=== PATIENT | female | born 1950 ===

== ENCOUNTER 2020-09-20 09:00 | Inpatient (IN) | payer OTHER ==
[~2020-09-20] VITALS: Ht 149.9 cm; Wt 77.6 kg
[2020-09-20] MEDS ORDERED: SYNTHROID100 MCG PO (09:50)
[2020-09-20] MEDS ORDERED: NORVASC5 MG PO (09:50)
[2020-09-20] MEDS ORDERED: TOPROL XL25 M1 PO (09:51)
[2020-09-20] MEDS ORDERED: PAXIL20 MG PO (09:51)
[2020-09-20] MEDS ORDERED: ZOCOR PO (09:52)
[2020-09-20] MEDS ORDERED: TRANXENE T-TAB7.5 MG PO (09:52)
[2020-09-20] MEDS ORDERED: [UNRECOGNIZED DRUG - OTHER] PO (09:52)
[2020-09-20] MEDS ORDERED: ANTIVERT (09:53)
[2020-09-20] MEDS ORDERED: CENTRUM PO (09:54)
[2020-09-20] MEDS ORDERED: ALBUTEROL IN (09:55)
[2020-09-26] MEDS ORDERED: AMOX-CLAV 875-1 EACH PO (07:53)
[2020-09-26] MEDS ORDERED: MEDROLPACK PO (07:53)
[2020-09-26] MEDS ORDERED: DIAZEPAM5 MG PO (07:53)
[2020-09-26] MEDS ORDERED: ULTRACET PO (07:53)
[2020-09-26] MEDS ORDERED: COLACE100 MG PO (07:53)
[2020-09-26] MEDS ORDERED: NEURONTIN800 MG PO (07:53)
== END 2020-09-27 20:58 | disposition home or self-care (01) | DRG 455 ==
LOC: SURG 09-26 04:40 → O/R 09-26 04:40 → SURH 09-26 07:00 → SURG 09-26 12:37
PROVIDERS: ADMIT Orthopaedic Surgery Orthopaedic Surgery of the Spine; ATTEND Orthopaedic Surgery Orthopaedic Surgery of the Spine
PROC: 0SG0071 Fusion of Lumbar Vertebral Joint with Autologous Tissue Substitute, Posterior Approach, Posterior Column, Open Approach (ICD-10-PCS; 2020-09-26)
PROC: 0ST20ZZ Resection of Lumbar Vertebral Disc, Open Approach (ICD-10-PCS; 2020-09-26)
PROC: 0SG00A0 Fusion of Lumbar Vertebral Joint with Interbody Fusion Device, Anterior Approach, Anterior Column, Open Approach (ICD-10-PCS; principal; 2020-09-26 07:00)
DX: M43.16 Spondylolisthesis, lumbar region (principal); M48.062 Spinal stenosis, lumbar region with neurogenic claudication; I10 Essential (primary) hypertension; E78.00 Pure hypercholesterolemia, unspecified; E03.9 Hypothyroidism, unspecified